=== PATIENT | male | born 1955 | race Caucasian/White ===

== ENCOUNTER → 2017-08-20 | Outpatient (CLI) | payer OTHER ==
[~2017-08-20] MED LIST: AMLO5TAB2 PO; ESZO3TAB28 PO; HYDR-3245 PO; LISI-167 PO; NAPR500T8 PO; SIMV40TA3 PO; TAMS0.4C2 PO
[2017-08-20 09:55] LABS: ASPARTATE AMINO TRANSFERASE 39 U/L (15-37); BLOOD UREA NITROGEN 11 mg/dL (7-18); HEMATOCRIT 43.4 % (39.2-51.8); HEMOGLOBIN 14.8 g/dL (13.7-18.0); WHITE BLOOD COUNT 4.1 x10^3/uL (3.4-10)
== END | disposition home or self-care (01) ==
LOC: STAR 08:24
PROVIDERS: ATTEND Orthopaedic Surgery
DX: Z01.818 Encounter for other preprocedural examination (principal); M16.11 Unilateral primary osteoarthritis, right hip
CPT/HCPCS: 36415; 80053; 81003; 85025; 87081; 93005

== ENCOUNTER 2017-08-31 07:06 | Inpatient (IN) | payer OTHER ==
[2017-08-20 09:25] VITALS: BP 142/100
[~2017-08-31] VITALS: Ht 190.5 cm; Wt 123.9 kg
[~2017-08-31 07:06] MED LIST changes: +EPINEPHRINE 1 MG/ML, 1ML ONE; +KETOROLAC 60 MG/2 ML ONE; +ROPIvacaine/PF 0.2%, 20 ML ONE; +SODIUM CHLORIDE 0.9% 50 ML ONE; +TRANEXAMIC ACID 100 MG/ML, 10ML ONE
[2017-08-31] MEDS ORDERED: MIDAZOLAM 1 MG/ML, 2ML ONE (08:01)
[2017-08-31] MEDS ORDERED: FENTANYL PF 100 MCG/2ML ONE (08:01)
[2017-08-31] MEDS ORDERED: LACTATED RINGERS 1,000 ML IV SCH (08:12)
[2017-08-31] MEDS ORDERED: GABA300C10 PO (08:14)
[2017-08-31] MEDS ORDERED: LIDOCAINE 1%, 2ML ONE (08:22)
[2017-08-31] MEDS ORDERED: LIDOCAINE 1%, 2ML SQ PRN (08:30)
[2017-08-31] MEDS ORDERED: CEFAZOLIN 1,000 MG ONE (09:55)
[2017-08-31] MEDS ORDERED: EPHEDRINE 50 MG/ML, 1ML ONE (09:55)
[2017-08-31] MEDS ORDERED: PROPOFOL 10 MG/ML, 20ML ONE (09:55)
[2017-08-31] MEDS ORDERED: DEXAMETHASONE 4 MG/ML, 1ML ONE (09:55)
[2017-08-31] MEDS ORDERED: ONDANSETRON 2MG/ML, 2ML ONE (09:55)
[2017-08-31] MEDS ORDERED: MIDAZOLAM 1 MG/ML, 2ML IV PRN (10:30)
[2017-08-31] MEDS ORDERED: MEPERIDINE/PF 25MG/0.5ML IVPush PRN (10:30)
[2017-08-31] MEDS ORDERED: EPHEDRINE 50 MG/ML, 1ML IVPush PRN (10:30)
[2017-08-31] MEDS ORDERED: OXYcodone 5 MG/5 ML ORAL.SOL UDC PO PRN (10:30)
[2017-08-31] MEDS ORDERED: DIAZEPAM 5 MG/ML, 2ML IVPush PRN (10:30)
[2017-08-31] MEDS ORDERED: HYDROcodone/APAP 7.5-325MG/15ML UDC PO PRN (10:30)
[2017-08-31] MEDS ORDERED: hydrALAzine 20 MG/ML, 1ML IV PRN (10:30)
[2017-08-31] MEDS ORDERED: LABETALOL 5MG/ML, 20ML IV PRN (10:30)
[2017-08-31] MEDS ORDERED: ACETAMINOPHEN 325 MG TABLET PO PRN (10:30)
[2017-08-31] MEDS ORDERED: ONDANSETRON 2MG/ML, 2ML IVPush PRN (10:30)
[2017-08-31] MEDS ORDERED: PROMETHAZINE 25 MG/ML, 1ML IV PRN (10:30)
[2017-08-31] MEDS ORDERED: METOPROLOL 1 MG/ML, 5ML IV PRN (10:30)
[2017-08-31] MEDS ORDERED: FENTANYL PF 100 MCG/2ML IV PRN (10:30)
[2017-08-31] MEDS ORDERED: ALBUTEROL SULFATE 2.5 MG/3 ML NPPB PRN (10:30)
[2017-08-31] MEDS ORDERED: DIPHENHYDRAMINE 50 MG CAPSULE PO PRN (11:00)
[2017-08-31] MEDS ORDERED: MAGNESIUM HYDROXIDE 8%, 30ML UDC PO PRN (11:00)
[2017-08-31] MEDS ORDERED: SCOPOLAMINE PATCH, 1MG PATCH.TD72 TD PRN (11:00)
[2017-08-31] MEDS ORDERED: ONDANSETRON 4 MG TABLET PO PRN (11:00)
[2017-08-31] MEDS ORDERED: HYDROcodone/APAP 10/325 MG TABLET PO PRN (11:00)
[2017-08-31] MEDS ORDERED: DIAZEPAM 5 MG TABLET PO PRN (11:00)
[2017-08-31] MEDS ORDERED: PROMETHAZINE 12.5 MG SUPP PR PRN (11:00)
[2017-08-31] MEDS ORDERED: BISACODYL 10 MG SUPP PR PRN (11:00)
[2017-08-31] MEDS: OXYcodone IR 5MG TABLET PO SCH ×3 (11:00→21:34)
[2017-08-31] MEDS ORDERED: OXYcodone IR 5MG TABLET PO PRN (11:00)
[2017-08-31] MEDS ORDERED: SENNA/DOCUSATE TABLET PO PRN (11:00)
[2017-08-31] MEDS ORDERED: ALUMINUM/MAG/SIMETHICONE 30 ML UDC PO PRN (11:00)
[2017-08-31] MEDS ORDERED: ONDANSETRON 2MG/ML, 2ML IV PRN (11:00)
[2017-08-31] MEDS: ACETAMINOPHEN 650 MG/20.3 ML UDC PO SCH ×3 (11:00→21:34)
[2017-08-31] MEDS ORDERED: PROMETHAZINE 25 MG/ML, 1ML IM PRN (11:00)
[2017-08-31] MEDS ORDERED: TRANEXAMIC ACID 1,000 MG in SODIUM CHLORIDE 0.9% 100 ML IVPB ONE (11:15)
[2017-08-31] MEDS: HYDROmorphone 1 MG/ML, 1ML IV PRN ×5 (11:19→20:22)
[2017-08-31] MEDS ORDERED: HYDROmorphone 1 MG/ML, 1ML ONE (11:22)
[2017-08-31] MEDS ORDERED: ACETAMINOPHEN 650 MG/20.3 ML UDC ONE (11:22)
[2017-08-31] MEDS ORDERED: OXYcodone 5 MG/5 ML ORAL.SOL UDC ONE (11:22)
[2017-08-31] MEDS ORDERED: ZOLPIDEM 5MG TABLET PO PRN (13:00)
[2017-08-31 13:59] VITALS: BP 131/87
[2017-08-31 14:00] VITALS: BP 126/85
[2017-08-31] MEDS: D5%-0.45% NACL 1,000 ML IV SCH ×2 (14:39→23:14)
[2017-08-31] MEDS: CEFAZOLIN PMX 2GM/50ML 50 ML IVPB SCH (17:55)
[2017-08-31] MEDS: ASPIRIN 81 MG TABLET EC PO SCH (18:08)
[2017-08-31 20:38] VITALS: BP 121/82
[2017-08-31] MEDS ORDERED: ATORVASTATIN 20 MG TABLET PO SCH (21:00)
[2017-08-31] MEDS: DOCUSATE 100 MG CAPSULE PO SCH (22:20)
[2017-08-31] MEDS: PREGABALIN 75 MG CAPSULE PO SCH (22:20)
[2017-09-01] MEDS: CEFAZOLIN PMX 2GM/50ML 50 ML IVPB SCH (00:22)
[2017-09-01 00:24] VITALS: BP 142/94
[2017-09-01] MEDS: HYDROmorphone 1 MG/ML, 1ML IV PRN (00:42)
[2017-09-01] MEDS: ACETAMINOPHEN 650 MG/20.3 ML UDC PO SCH ×3 (01:46→09:30)
[2017-09-01] MEDS: OXYcodone IR 5MG TABLET PO SCH ×3 (01:47→09:32)
[2017-09-01 03:53] VITALS: BP 129/85
[2017-09-01] MEDS: D5%-0.45% NACL 1,000 ML IV SCH (05:10)
[2017-09-01 05:46] LABS: HEMATOCRIT 40.8 % (39.2-51.8); HEMOGLOBIN 13.9 g/dL (13.7-18.0)
[2017-09-01] MEDS: ASPIRIN 81 MG TABLET EC PO SCH (05:47)
[2017-09-01] MEDS ORDERED: DEXAMETHASONE 4 MG/ML, 5ML IVPush SCH (06:00)
[2017-09-01 07:00] VITALS: BP 146/99
[2017-09-01] MEDS ORDERED: TAMSULOSIN 0.4 MG CAP.ER.24H PO SCH (09:00)
[2017-09-01] MEDS ORDERED: MULTIVITAMINS/MINERALS TABLET PO SCH (09:00)
[2017-09-01] MEDS ORDERED: AMLODIPINE 5 MG TABLET PO SCH (09:00)
[2017-09-01] MEDS ORDERED: LISINOPRIL 10 MG TABLET PO SCH (09:00)
[2017-09-01 09:29] VITALS: BP 136/91
[2017-09-01] MEDS: DOCUSATE 100 MG CAPSULE PO SCH (09:32)
[2017-09-01] MEDS: PREGABALIN 75 MG CAPSULE PO SCH (09:33)
[2017-09-01] MEDS ORDERED: OXYC5CAP2 PO (10:41)
[2017-09-01] MEDS ORDERED: KETOROLAC 30 MG/1 ML IV SCH (13:00)
== END 2017-09-01 10:45 | disposition home or self-care (01) | DRG 470 ==
LOC: ORIP 07:06 → 4NOR 12:21 → DCLOUNGE 09-01 10:24
PROVIDERS: ADMIT Orthopaedic Surgery; ATTEND Orthopaedic Surgery
PROC: 0SR902Z Replacement of Right Hip Joint with Metal on Polyethylene Synthetic Substitute, Open Approach (ICD-10-PCS; principal; 2017-08-31 09:15)
DX: M16.11 Unilateral primary osteoarthritis, right hip (principal); I10 Essential (primary) hypertension; E78.5 Hyperlipidemia, unspecified; N40.0 Benign prostatic hyperplasia without lower urinary tract symptoms
CPT/HCPCS: 36415; 72170; 85014; 85018; 86850; 86900; C1713; J0171; J0690; J1100; J1170; J1885; J2250; J2405; J2704; J2795; J3010; J3490; C1776; J7120

== ENCOUNTER 2018-10-25 05:44 | Day surgery (SDC) | payer OTHER ==
[~2018-10-25] VITALS: Ht 190.5 cm; Wt 114.0 kg
[~2018-10-25 05:44] MED LIST changes: +AMLO-150 PO; -AMLO5TAB2 PO; -EPINEPHRINE 1 MG/ML, 1ML ONE; +GABA300C10 PO; -KETOROLAC 60 MG/2 ML ONE; +OXYC5CAP2 PO; -ROPIvacaine/PF 0.2%, 20 ML ONE; -SODIUM CHLORIDE 0.9% 50 ML ONE; -TRANEXAMIC ACID 100 MG/ML, 10ML ONE
[2018-10-25] MEDS ORDERED: LACTATED RINGERS 1,000 ML IV SCH (06:07)
[2018-10-25 06:12] VITALS: BP 120/82
[2018-10-25] MEDS ORDERED: BUPIVACAINE/PF-EPI 0.5% 1:200K ONE (06:31)
[2018-10-25 06:57] LABS: ALANINE AMINOTRANSFERASE 43 U/L (12-78); ALBUMIN 3.7 g/dL (3.4-5.0); ANION GAP 8 mmol/L (5-15); CHLORIDE 115 mmol/L (98-107); CREATININE 0.75 mg/dL (0.7-1.3)
[2018-10-25 06:59] LABS: ALKALINE PHOSPHATASE 63 U/L (45-117); BILIRUBIN,TOTAL 0.2 mg/dL (0.2-1.0); TOTAL PROTEIN 7.6 g/dL (6.4-8.2)
[2018-10-25] MEDS ORDERED: MIDAZOLAM 1 MG/ML, 2ML ONE (07:22)
[2018-10-25] MEDS ORDERED: FENTANYL PF 100 MCG/2ML ONE (07:22)
[2018-10-25] MEDS ORDERED: CEFAZOLIN 1,000 MG ONE (07:51)
[2018-10-25] MEDS ORDERED: ONDANSETRON 2MG/ML, 2ML ONE (07:51)
[2018-10-25] MEDS ORDERED: PROPOFOL 10 MG/ML, 20ML ONE (07:51)
[2018-10-25] MEDS ORDERED: DEXAMETHASONE 4 MG/ML, 1ML ONE (07:51)
[2018-10-25] MEDS ORDERED: MEPERIDINE/PF 25MG/0.5ML IVPush PRN (08:00)
[2018-10-25] MEDS ORDERED: LABETALOL 5MG/ML, 20ML IV PRN (08:00)
[2018-10-25] MEDS ORDERED: OXYcodone 5 MG/5 ML ORAL.SOL UDC PO PRN (08:00)
[2018-10-25] MEDS ORDERED: FENTANYL PF 100 MCG/2ML IV PRN (08:00)
[2018-10-25] MEDS ORDERED: hydrALAzine 20 MG/ML, 1ML IV PRN (08:00)
[2018-10-25] MEDS ORDERED: HYDROmorphone 2 MG/ML, 1ML IVPush PRN (08:00)
[2018-10-25] MEDS ORDERED: DIAZEPAM 5 MG/ML, 2ML IVPush PRN (08:00)
[2018-10-25] MEDS ORDERED: ONDANSETRON 2MG/ML, 2ML IV PRN (08:00)
[2018-10-25] MEDS ORDERED: ONDANSETRON ODT 8 MG PO PRN (08:00)
[2018-10-25] MEDS ORDERED: ACETAMINOPHEN 325 MG TABLET PO PRN (08:00)
[2018-10-25] MEDS ORDERED: ACETAMINOPHEN 650 MG/20.3 ML UDC ONE (08:26)
[2018-10-25] MEDS ORDERED: OXYcodone 5 MG/5 ML ORAL.SOL UDC ONE (08:27)
== END 2018-10-25 09:15 | disposition home or self-care (01) ==
LOC: OUT 05:44
PROVIDERS: ATTEND Orthopaedic Surgery
DX: M65.312 Trigger thumb, left thumb (principal); M65.322 Trigger finger, left index finger; M65.332 Trigger finger, left middle finger; I10 Essential (primary) hypertension; E78.5 Hyperlipidemia, unspecified; Z79.82 Long term (current) use of aspirin; Z98.890 Other specified postprocedural states
CPT/HCPCS: 26055; 36415; 80053; 93005; J0690; J1100; J2250; J2405; J2704; J3010